=== PATIENT | male | born 1995 | race Caucasian/White ===

== ENCOUNTER 2022-01-16 13:23 | Emergency (ER) | payer MEDICAID ==
[~2022-01-16] VITALS: Ht 182.9 cm; Wt 68.2 kg
[2022-01-16 13:56] VITALS: BP 107/68
[2022-01-16] MEDS ORDERED: SULF1TAB49 PO ×3 (16:04→16:11)
[2022-01-16] MEDS ORDERED: sulfamethoxazole/trimethoprim DS (800/160mg) tablet PO ONE (16:05)
[2022-01-16] MEDS ORDERED: ibuprofen tablet 400 MG TABLET PO ONE (16:05)
== END 2022-01-16 16:32 | disposition home or self-care (01) ==
LOC: ER 13:27
DX: L03.115 Cellulitis of right lower limb (principal); L53.8 Other specified erythematous conditions; L98.9 Disorder of the skin and subcutaneous tissue, unspecified; F12.10 Cannabis abuse, uncomplicated; Z79.899 Other long term (current) drug therapy
CPT/HCPCS: 99283

== ENCOUNTER 2022-02-15 01:33 | Emergency (ER) | payer MEDICAID ==
[~2022-02-15] VITALS: Ht 182.9 cm; Wt 68.2 kg
[~2022-02-15 01:33] MED LIST: SULF1TAB49 PO
[2022-02-15] MEDS ORDERED: ketorolac trometh inj. 60 MG/2 ML VIAL IM ONE (02:00)
[2022-02-15] MEDS ORDERED: ondansetron/PF 4mg/2ml inj IV ONE (03:20)
[2022-02-15] MEDS ORDERED: fentaNYL/PF 50MCG/1 ML 2ML syringe IV ONE (03:20)
[2022-02-15] MEDS ORDERED: clindamycin 600mg/D5W 50ml 50 ML IV ONE (03:20)
[2022-02-15 04:10] LABS: BASOPHILS % (AUTO) 0.2 % (0-1); EOSINOPHILS % (AUTO) 0.5 % (0-6); HEMATOCRIT 39.6 % (42.0-52.0); HEMOGLOBIN 13.1 g/dl (14.0-17.9); LYMPHOCYTES % (AUTO) 11.7 % (21-51); MEAN CORPUSCULAR HGB CONC 33.1 g/dL (33.0-36.5); MEAN CORPUSCULAR VOLUME 96.7 FL (78-98); MEAN PLATELET VOLUME 7.6 FL (7.4-10.4); MONOCYTES # (AUTO) 0.5 X10'3 (0-0.9); MONOCYTES % (AUTO) 5.8 % (2-12); NEUTROPHILS # (AUTO) 6.9 X10'3 (1.8-7.7); NEUTROPHILS % (AUTO) 81.8 % (42-75); PLATELET COUNT 202 X10'3 (140-440); RED CELL DISTRIBUTION WIDTH 14.5 % (11.5-14.5); WHITE BLOOD COUNT 8.4 X10'3 (4.5-11.0)
[2022-02-15 04:25] LABS: ALANINE AMINOTRANSFERASE 39 U/L (12-78); ALBUMIN 3.6 G/DL (3.4-5.0); ALKALINE PHOSPHATASE 50 IU/L (46-116); ANION GAP 10 (8-16); ASPARTATE AMINO TRANSFERASE 29 U/L (10-37); BILIRUBIN,TOTAL 0.5 MG/DL (0.1-1.0); BLOOD UREA NITROGEN 12 MG/DL (7-18); BUN/CREATININE RATIO 15.8 (5.4-32.0); CALCIUM 8.5 MG/DL (8.5-10.1); CHLORIDE 104 MMOL/L (99-107); CREATININE 0.76 MG/DL (0.60-1.10); GLUCOSE 113 MG/DL (70-104); POTASSIUM 3.4 MMOL/L (3.5-5.1); SODIUM 138 MMOL/L (135-145); TOTAL CARBON DIOXIDE 24.5 MMOL/L (24-32); TOTAL PROTEIN 7.1 G/DL (6.4-8.2); eGFR > 90 ML/MIN
[2022-02-15 05:45] LABS: CLARITY,URINE CLEAR (Clear); COLOR,URINE YELLOW (Yellow); GLUCOSE, URINE NEGATIVE (Neg); KETONES,URINE NEGATIVE (Neg); LEUKOCYTE ESTERASE ,URINE NEGATIVE (Neg); NITRITES, URINE NEGATIVE (Neg); OCCULT BLOOD,URINE NEGATIVE (Neg); PH,URINE 6.5 (4.8-8.0); PROTEIN,URINE NEGATIVE (Neg); UROBILINOGEN,URINE 0.2 E.U/dL (0.2-1.0)
[2022-02-15 05:46] LABS: UA COLLECTION TYPE CLN CATCH MIDSTREAM
--- NOTE | 2022-02-15 08:39 | NUR ---
NOTIFIED BY [facility] THAT THEY WILL NOT BE ACCEPTING PT. THEY ARE LOOKING INTO WHETHER ANY OTHER [facility] WILL ACCEPT THIS PT.
[2022-02-15] MEDS ORDERED: CLIN-30 PO (10:13)
[2022-02-15 11:04] VITALS: BP 106/65
== END 2022-02-15 11:09 | disposition home or self-care (01) ==
LOC: ER 01:34
DX: S02.32XA Fracture of orbital floor, left side, initial encounter for closed fracture (principal); Z20.822 Contact with and (suspected) exposure to COVID-19; F12.10 Cannabis abuse, uncomplicated; Z88.0 Allergy status to penicillin; Y04.8XXA Assault by other bodily force, initial encounter; Y93.89 Activity, other specified; Y92.89 Other specified places as the place of occurrence of the external cause; Y99.8 Other external cause status
CPT/HCPCS: 36415; 70450; 70486; 71045; 80053; 81003; 85025; 87635; 93005; 96365; 96366; 96372; 96375; 99285; C9803; J1885; J2405; J3490

== ENCOUNTER 2023-09-25 21:41 | Emergency (ER) | payer MEDICAID ==
[~2023-09-25] VITALS: Ht 188 cm; Wt 80.5 kg
[2023-09-25 21:50] VITALS: TEMP 98.1
[2023-09-25 23:01] VITALS: BP 128/78; PULSE 79; RESP 14; O2SAT 99
== END 2023-09-25 23:22 | disposition home or self-care (01) ==
LOC: ER 21:41
DX: Z02.89 Encounter for other administrative examinations (principal); F12.90 Cannabis use, unspecified, uncomplicated; Z88.0 Allergy status to penicillin; Z79.899 Other long term (current) drug therapy
CPT/HCPCS: 99281